=== PATIENT | female | born 1945 | race Caucasian/White ===

== ENCOUNTER → 2016-06-09 | Outpatient (REF) | LOC: ZLAB.WCH 11:30 | DX: Z01.89 Encounter for other specified special examinations (principal) ==

== ENCOUNTER → 2016-09-05 | Outpatient (REF) | LOC: ZLAB.WCH 10:44 | DX: Z01.89 Encounter for other specified special examinations (principal) ==

== ENCOUNTER → 2017-12-04 | Outpatient (REF) | LOC: ZLAB.WCH 16:32 | DX: Z01.89 Encounter for other specified special examinations (principal) ==